=== PATIENT | female | born 1995 | race Caucasian/White ===

== ENCOUNTER 2018-03-13 03:50 | Emergency (ER) | payer SELFPAY ==
[2018-03-13 04:13] VITALS: TEMP 98.3
--- NOTE | 2018-03-13 04:20 | ED.PDOC ---
History of Present Illness - General Chief Complaint: General Stated Complaint: headache, back , dizziy Time Seen by Provider: 03/13/18 04:13 Source: patient Exam Limitations: no limitations Additional Information: SHE SUFFERS FROM ANXIETY AND TODAY SHE HAS MULTSYSTEMIC SYMPTOMS. SHE VOICES AT TIMES FEELING DIZZY, WITH VISUAL DISTURBANCES AND HEAD PRESSURES AND BACK DISCOMFORT ASSOCIATED WITH RAPID HEART RATE AND SOB. SHE WOKE UP EARLIER AND WAS TRYING TO TEST AND FELT IF THE CELL WAS BECOMING DISTORTED. AT THE TIME OF THE EXAM THE SYMPTOMS HAVE RESOLVED. SHE TELLS ME THAT SHE IS CONCERNED THAT SHE MIGHT BE . HER LAST PERIOD WAS JAN 14. - History of Present Illness Timing/Duration: 1/2 hour Improving Factors: nothing Worsening Factors: nothing Associated Symptoms: denies symptoms Allergies/Adverse Reactions: Allergies NO KNOWN ALLERGY Allergy (Verified 03/13/18 04:03) Review of Systems - Review of Systems Constitutional: States: no symptoms reported EENTM: States: no symptoms reported Respiratory: States: no symptoms reported Cardiology: States: no symptoms reported Gastrointestinal/Abdominal: States: no symptoms reported Genitourinary: States: no symptoms reported Musculoskeletal: States: no symptoms reported Skin: States: no symptoms reported Neurological: States: anxiety, tingling Endocrine: States: no symptoms reported Hematologic/Lymphatic: States: no symptoms reported All other Systems: Reviewed and Negative, No Change from Baseline Past Medical History (General) - Patient Medical History Hx Seizures: No Hx Stroke: No Hx Dementia: No Hx Asthma: No Hx of COPD: No Hx Cardiac Disorders: No Hx Congestive Heart Failure: No Hx Pacemaker: No Hx Hypertension: No Hx Thyroid Disease: No Hx Diabetes: No Hx Gastroesophageal Reflux: No Hx Renal Disease: No Hx Cancer: No Hx of HIV: No Hx Hepatitis C: No Hx MRSA: No Surgical History: no surgical history - Vaccination History Hx Tetanus, Diphtheria Vaccination: No Hx Influenza Vaccination: No - Social History Hx Tobacco Use: Yes Hx Alcohol Use: No Hx Substance Use: No - Female History Hx Last Menstrual Period: 12/10/15 Patient : No Family Medical History - Family History Mother Family History: Unknown Physical Exam - Physical Exam General Appearance: Alert, Anxious Eye Exam: bilateral normal Ears, Nose, Throat: hearing grossly normal Neck: non-tender Respiratory: chest non-tender, lungs clear, normal breath sounds, no respiratory distress, no accessory muscle use Cardiovascular/Chest: normal peripheral pulses, regular rate, rhythm, no edema, no gallop, no JVD, no murmur Peripheral Pulses: radial,right: 2+, radial,left: 2+ Gastrointestinal/Abdominal: normal bowel sounds, non tender, soft Rectal Exam: deferred Back Exam: normal inspection Extremity: normal range of motion Neurologic: alert, normal mood/affect, oriented x 3 Skin Exam: normal color Lymphatic: no adenopathy Progress - Progress Progress: 03/13/18 04:44 THE TEST IS NEGATIVE. Departure - Departure Clinical Impression: Anxiety Time of Disposition: 04:45 Disposition: Discharge to Home or Self Care Condition: Fair Departure Forms: ED Discharge - Pt. Copy, Patient Portal Self Enrollment Diet: resume usual diet Referrals: Brigida Zimmerman MD [Primary Care Provider] - 1-2 Weeks
[2018-03-13 04:52] VITALS: BP 138/85; O2SAT 95
== END 2018-03-13 04:51 | disposition home or self-care (01) ==
LOC: ER 03:50
DX: F41.9 Anxiety disorder, unspecified (principal); N92.6 Irregular menstruation, unspecified

== ENCOUNTER 2018-04-19 12:01 | Emergency (ER) | payer SELFPAY ==
--- NOTE | 2018-04-19 12:12 | ED.PDOC ---
History of Present Illness - General Chief Complaint: Dental/Mouth Stated Complaint: tooth pain Time Seen by Provider: 04/19/18 12:11 Source: patient Exam Limitations: no limitations - History of Present Illness Initial Comments: Sirai Fullbright 22 Timing/Duration: gradual, other - 3 days ago Severity: moderate EENT Location: dental Prearrival Treatment: other - chloraseptic Presenting Symptoms: dental pain Improving Factors: nothing Worsening Factors: eating Associated Symptoms: denies symptoms Allergies/Adverse Reactions: Allergies NO KNOWN ALLERGY Allergy (Verified 03/13/18 04:03) Home Medications: Ambulatory Orders Clindamycin HCl [Cleocin] 150 mg PO TID 7 Days #21 cap 04/19/18 Gabapentin [Neurontin] 200 mg PO BEDTIME #10 cap 04/19/18 Review of Systems - Review of Systems Constitutional: States: no symptoms reported EENTM: States: see HPI Respiratory: States: no symptoms reported Cardiology: States: no symptoms reported All other Systems: Reviewed and Negative, No Change from Baseline Past Medical History (General) - Patient Medical History Hx Seizures: No Hx Stroke: No Hx Dementia: No Hx Asthma: No Hx of COPD: No Hx Cardiac Disorders: No Hx Congestive Heart Failure: No Hx Pacemaker: No Hx Hypertension: No Hx Thyroid Disease: No Hx Diabetes: No Hx Gastroesophageal Reflux: No Hx Renal Disease: No Hx Cancer: No Hx of HIV: No Hx Hepatitis C: No Hx MRSA: No Surgical History: other - left wrist - Vaccination History Hx Tetanus, Diphtheria Vaccination: No Hx Influenza Vaccination: No - Social History Hx Tobacco Use: Yes Hx Alcohol Use: No Hx Substance Use: No Hx Physical Abuse: No Hx Emotional Abuse: No - Female History Patient is a Female of Child Bearing Age (10 -59 yrs old): Yes Hx Last Menstrual Period: 04/01/18 Patient : No Family Medical History - Family History Mother Family History: No Known Physical Exam - Physical Exam General Appearance: Alert, Comfortable, No apparent distress Eye Exam: bilateral normal Ear Exam: bilateral ear: auricle normal, canal normal, TM normal Nasal Exam: normal inspection Throat Exam: normal mouth inspection, pharynx normal, dental tenderness - right lower jaw with gum swelling no dental cavities noted Neck: supple, normal inspection, trachea midline Cardiovascular/Respiratory: regular rate, rhythm, no M/R/G, normal breath sounds Abdominal Exam: non-tender Neurologic: alert, oriented x 3 Skin Exam: normal color, warm/dry Departure - Departure Clinical Impression: Pain, dental Time of Disposition: 12:16 Disposition: Discharge to Home or Self Care Condition: Good Departure Forms: ED Discharge - Pt. Copy, Patient Portal Self Enrollment Instructions: DI for Dental Pain Diet: other - SOFT DIET ONLY Prescriptions: Clindamycin HCl [Cleocin] 150 mg PO TID 7 Days #21 cap Gabapentin [Neurontin] 200 mg PO BEDTIME #10 cap Home Medications: Ambulatory Orders Clindamycin HCl [Cleocin] 150 mg PO TID 7 Days #21 cap 04/19/18 Gabapentin [Neurontin] 200 mg PO BEDTIME #10 cap 04/19/18 Additional Instructions: KEEP APPOINTMENT WITH DENTIST 22 Apr 2018;May take Aleve(over the counter) 1-2 tablets am/pm for pain
[2018-04-19] MEDS ORDERED: GABAPENTIN 100 MG CAP PO ONE (12:16)
[2018-04-19] MEDS ORDERED: HYDROcodone 7.5MG/APAP 325MG 1 EA TAB PO ONE (12:16)
[2018-04-19] MEDS ORDERED: CLINDAMYCIN HCL CAP 150 MG CAP PO ONE (12:16)
[2018-04-19 12:17] VITALS: TEMP 98
[2018-04-19 13:13] VITALS: BP 112/60; O2SAT 97
== END 2018-04-19 12:52 | disposition home or self-care (01) ==
LOC: ER 12:01
DX: K08.89 Other specified disorders of teeth and supporting structures (principal); Z87.891 Personal history of nicotine dependence

== ENCOUNTER 2018-04-20 02:31 | Emergency (ER) | payer SELFPAY ==
--- NOTE | 2018-04-20 02:52 | ED.PDOC ---
History of Present Illness - General Chief Complaint: Dental/Mouth Stated Complaint: dental pain Time Seen by Provider: 04/20/18 02:34 Exam Limitations: no limitations - History of Present Illness Initial Comments: Lanette Fullbright 22 y/o female seen initially for dental pain this am came back since she continue to hurt on her lower jaw;She was given Clindamycin po and norco 10 mg then prescribed gabapentin and clindamycin.Stated has emergency appointment with dentist at 3:30 p today 20 Apr 2018 in [place]. Timing/Duration: this morning Severity: moderate EENT Location: dental Prearrival Treatment: prescription meds Presenting Symptoms: dental pain Improving Factors: nothing Worsening Factors: eating Associated Symptoms: denies symptoms, other - see hpi Allergies/Adverse Reactions: Allergies NO KNOWN ALLERGY Allergy (Verified 03/13/18 04:03) Home Medications: Ambulatory Orders Clindamycin HCl [Cleocin] 150 mg PO TID 7 Days #21 cap 04/19/18 Gabapentin [Neurontin] 200 mg PO BEDTIME #10 cap 04/19/18 Review of Systems - Review of Systems Constitutional: States: no symptoms reported EENTM: States: see HPI Respiratory: States: no symptoms reported Cardiology: States: no symptoms reported Neurological: States: no symptoms reported All other Systems: Reviewed and Negative, No Change from Baseline Past Medical History (General) - Patient Medical History Hx Seizures: No Hx Stroke: No Hx Dementia: No Hx Asthma: No Hx of COPD: No Hx Cardiac Disorders: No Hx Congestive Heart Failure: No Hx Pacemaker: No Hx Hypertension: No Hx Thyroid Disease: No Hx Diabetes: No Hx Gastroesophageal Reflux: No Hx Renal Disease: No Hx Cancer: No Hx of HIV: No Hx Hepatitis C: No Hx MRSA: No Surgical History: other - oral surgery;ganglion cyst left wrist - Vaccination History Hx Tetanus, Diphtheria Vaccination: No Hx Influenza Vaccination: No - Social History Hx Tobacco Use: Yes Hx Alcohol Use: No Hx Substance Use: No Hx Physical Abuse: No Hx Emotional Abuse: No - Female History Hx Last Menstrual Period: 04/01/18 Patient : No Family Medical History - Family History Mother Family History: No Known Physical Exam - Physical Exam General Appearance: Alert, Comfortable, No apparent distress Eye Exam: bilateral normal Ear Exam: bilateral ear: auricle normal, canal normal, TM normal Nasal Exam: normal inspection Throat Exam: normal mouth inspection, pharynx normal, dental tenderness, other - impacted molar right 3rd with slight gum erosion;no dental cavities noted Neck: non-tender, supple Cardiovascular/Respiratory: regular rate, rhythm, no M/R/G, normal peripheral pulses Abdominal Exam: non-tender Neurologic: alert, oriented x 3 Skin Exam: normal color, warm/dry Progress - Progress Progress: 04/20/18 04:18 Vital Signs - 8 hr 04/20/18 04/20/18 02:58 03:55 Temperature 97.4 F L 97.8 F Pulse Rate [ 93 H 84 left] Respiratory 18 18 Rate Blood Pressure 118/80 96/56 [left] O2 Sat by Pulse 95 100 Oximetry 04/20/18 04:19 Inferior alveolar nerve block done right side after applying lidocaine gel intraorally with 2 cc Lidocaine 1% with epi tolerated procedure well and 2 minutes later feels numb right lower jaw stating no longer hurts. - EKG/XRAY/CT XRAY: mandible no acute abnormalities noted Departure - Departure Clinical Impression: Pain, dental, Impacted third molar tooth Time of Disposition: 04:23 Disposition: Discharge to Home or Self Care Condition: Fair Departure Forms: ED Discharge - Pt. Copy, Patient Portal Self Enrollment Instructions: DI for Mouth Pain, DI for Dental Pain Diet: other - continue with soft diet Home Medications: Ambulatory Orders Clindamycin HCl [Cleocin] 150 mg PO TID 7 Days #21 cap 04/19/18 Gabapentin [Neurontin] 200 mg PO BEDTIME #10 cap 04/19/18 Additional Instructions: Continue with all home medications;KEEP EMERGENCY APPOINTMENT WITH DENTIST TODAY 20 Apr 2018 at 3:30 pm in [place]
[2018-04-20] MEDS ORDERED: KETOROLAC TROMETHAMINE INJ 60 MG/2 ML VIAL IM ONE (03:06)
[2018-04-20] MEDS ORDERED: LIDOCAINE 1% W/ EPINEPHRINE 20 ML VIAL INJ ONE (03:43)
[2018-04-20 04:01] VITALS: BP 96/56; O2SAT 100
--- NOTE | 2018-04-20 04:06 | RAD ---
Mandible series 3 view on 04/20/2018 CLINICAL INDICATION: Right mandible pain COMPARISON: None FINDINGS: There are no fractures. Paranasal sinuses appear grossly clear. No bony abnormality is noted. IMPRESSION: No acute abnormality. Electronically signed by: Gigi Aaron 04/20/2018 4:04 AM CDT
[2018-04-20] MEDS ORDERED: HYDROcodone 7.5MG/APAP 325MG 1 EA TAB PO ONE (04:12)
[2018-04-20] MEDS ORDERED: HYDROCOD/APAP 5/325 (ER DISP) #3 TAB PO ONE (04:12)
[2018-04-20 04:38] VITALS: TEMP 98.4
== END 2018-04-20 04:37 | disposition home or self-care (01) ==
LOC: ER 02:31
DX: K01.1 Impacted teeth (principal); Z87.891 Personal history of nicotine dependence
CPT/HCPCS: 70110; J1885

== ENCOUNTER 2018-07-21 00:36 | Emergency (ER) | payer SELFPAY ==
--- NOTE | 2018-07-21 00:45 | ED.PDOC ---
History of Present Illness - General Chief Complaint: Chest Pain/LA Stated Complaint: chest pain Time Seen by Provider: 07/21/18 00:45 Source: patient Exam Limitations: no limitations - History of Present Illness Initial Comments: Lanette Barksdaleight 23 y/o female brought by friend to [facility] ER with sharp shooting chest pains lasting for about few seconds intermittently since this morning stating getting more frequent so decided to come here.No n/v,no diaphoresis,no sob,denies pain radiation.Stated mostly on the left upper part of chest. Timing/Duration: 7-24 hours Severity/Quality: sharp Location: other - left sidechest Chest Pain Radiation: no radiation Activities at Onset: none Prior Chest Pain/Cardiac Workup: other - had same symptoms3 1/2 months ago but no Md follow up done by patient as she was instructed Improving Factors: nothing Worsening Factors: nothing Nitro Today/Relief: no nitro taken today Aspirin Treatment Today: no aspirin today Associated Symptoms: denies symptoms Allergies/Adverse Reactions: Allergies NO KNOWN ALLERGY Allergy (Verified 03/13/18 04:03) Home Medications: Ambulatory Orders NK [NK] 07/21/18 Review of Systems - Review of Systems Constitutional: States: no symptoms reported EENTM: States: no symptoms reported Respiratory: States: no symptoms reported Cardiology: States: see HPI Gastrointestinal/Abdominal: States: no symptoms reported Genitourinary: States: no symptoms reported Musculoskeletal: States: no symptoms reported Skin: States: no symptoms reported Past Medical History (General) - Patient Medical History Hx Seizures: No Hx Stroke: No Hx Dementia: No Hx Asthma: No Hx of COPD: No Hx Cardiac Disorders: No Hx Congestive Heart Failure: No Hx Pacemaker: No Hx Hypertension: No Hx Thyroid Disease: No Hx Diabetes: No Hx Gastroesophageal Reflux: No Hx Renal Disease: No Hx Cancer: No Hx of HIV: No Hx Hepatitis C: No Hx MRSA: No Surgical History: other - oral surgery - Vaccination History Hx Tetanus, Diphtheria Vaccination: No Hx Influenza Vaccination: No - Social History Hx Tobacco Use: Yes Hx Alcohol Use: No Hx Substance Use: No Hx Physical Abuse: No Hx Emotional Abuse: No - Female History Patient is a Female of Child Bearing Age (10 -59 yrs old): Yes Hx Last Menstrual Period: 07/04/18 Patient : No Family Medical History - Family History Mother Family History: No Known Physical Exam - Physical Exam General Appearance: Alert, Comfortable, No apparent distress Eyes, Ears, Nose, Throat Exam: normal ENT inspection Neck: non-tender, full range of motion, supple Respiratory: chest non-tender, lungs clear, normal breath sounds Cardiovascular/Chest: normal peripheral pulses, regular rate, rhythm, no murmur Peripheral Pulses: radial,right: 2+, radial,left: 2+ Gastrointestinal/Abdominal: normal bowel sounds, non tender, soft Extremity: normal range of motion, non-tender, no pedal edema, no calf tenderness Neurologic: no motor/sensory deficits, alert, oriented x 3 Skin Exam: normal color, warm/dry Progress - Progress Progress: 07/21/18 02:08 Vital Signs - 8 hr 07/21/18 07/21/18 00:46 00:50 Pulse Rate [ 102 H 101 H Apical] Respiratory 18 Rate Blood Pressure 142/83 [Left Arm] O2 Sat by Pulse 98 Oximetry - Results/Orders Results/Orders: 07/21/18 00:54 EKG Assessment ONCE 07/21/18 01:00 EKG STAT Laboratory Results - last 24 hr 07/21/18 07/21/18 07/21/18 00:52 00:52 01:03 WBC 8.8 RBC 5.33 Hgb 15.7 Hct 46.4 MCV 87.1 MCH 29.5 MCHC 33.8 RDW 13.9 Plt Count 313 MPV 7.8 Absolute Neuts (auto) 5.20 Absolute Lymphs (auto) 2.30 Absolute Monos (auto) 1.00 H Absolute Eos (auto) 0.20 Absolute Basos (auto) 0.10 Neutrophils % 59.5 Lymphocytes % 26.3 Monocytes % 11.6 H Eosinophils % 1.9 Basophils % 0.7 PT 9.8 INR 0.98 PTT (SP) 26.7 D-Dimer, Quantitative Sodium 138 Potassium 3.7 Chloride 103 Carbon Dioxide 26 Anion Gap 12.7 BUN 10 Creatinine 0.77 BUN/Creatinine Ratio 13.0 Random Glucose 80 Serum Osmolality 273.7 L Calcium 9.7 Magnesium 1.9 Total Bilirubin 0.6 Direct Bilirubin < 0.1 Indirect Bilirubin 0.5 AST 27 ALT 34 Alkaline Phosphatase 60 Creatine Kinase 64 CK-MB (CK-2) 0.7 CK-MB (CK-2) % Not Reportable Troponin I < 0.02 Serum Total Protein 7.8 Albumin 4.4 TSH 4.56 Urine Color Urine Appearance Urine pH Ur Specific [place] Urine Protein Urine Glucose (UA) Urine Ketones Urine Blood Urine Nitrite Urine Bilirubin Urine Urobilinogen Ur Leukocyte Esterase Urine RBC Urine WBC Ur Epithelial Cells Urine Bacteria Urine Opiates Screen Negative Urine Barbiturates Negative Ur Phencyclidine Scrn Negative U Amphetamin/Meth Scrn Negative U Benzodiazepines Scrn Negative U Cocaine Metab Screen Negative U Cannabinoids Screen Negative 07/21/18 07/21/18 07/21/18 01:10 01:57 02:41 WBC RBC Hgb Hct MCV MCH MCHC RDW Plt Count MPV Absolute Neuts (auto) Absolute Lymphs (auto) Absolute Monos (auto) Absolute Eos (auto) Absolute Basos (auto) Neutrophils % Lymphocytes % Monocytes % Eosinophils % Basophils % PT INR PTT (SP) D-Dimer, Quantitative 0.35 Sodium Potassium Chloride Carbon Dioxide Anion Gap BUN Creatinine BUN/Creatinine Ratio Random Glucose Serum Osmolality Calcium Magnesium Total Bilirubin Direct Bilirubin Indirect Bilirubin AST ALT Alkaline Phosphatase Creatine Kinase CK-MB (CK-2) CK-MB (CK-2) % Troponin I < 0.02 Serum Total Protein Albumin TSH Urine Color Yellow Urine Appearance Clear Urine pH 7.0 Ur Specific [place] 1.025 Urine Protein Negative Urine Glucose (UA) Negative Urine Ketones Negative Urine Blood Negative Urine Nitrite Negative Urine Bilirubin Negative Urine Urobilinogen 0.2 Ur Leukocyte Esterase Negative Urine RBC 0-1 Urine WBC 0 Ur Epithelial Cells 1-3 Urine Bacteria 0 Urine Opiates Screen Urine Barbiturates Ur Phencyclidine Scrn U Amphetamin/Meth Scrn U Benzodiazepines Scrn U Cocaine Metab Screen U Cannabinoids Screen - EKG/XRAY/CT EKG: Sinus, Tachy, no ST T wave changes, Unchanged from - 17 Apr 2018 Comments: HR-108 XRAY: chest - no acute abnormalities Departure - Departure Clinical Impression: Chest pain Qualifiers: Chest pain type: unspecified Qualified Code(s): R07.9 - Chest pain, unspecified Time of Disposition: 03:15 Disposition: Discharge to Home or Self Care Condition: Good Departure Forms: ED Discharge - Pt. Copy, Patient Portal Self Enrollment Instructions: DI for Chest Pain Home Medications: Ambulatory Orders NK [NK] 07/21/18 Additional Instructions: Need to sign up with primary Md [phone] for referral to decorating consultant for further evaluation;Return to ER as needed;May take ALEVE(over the counter) 1 -2 tablets am/pm as needed for pain
[2018-07-21] MEDS ORDERED: LACTATED RINGERS 1,000 ML IVS ONE (01:03)
--- NOTE | 2018-07-21 01:29 | RAD ---
EXAM DESCRIPTION: Single view of the chest CLINICAL HISTORY: chest pain COMPARISON: 04/17/2018 FINDINGS: Single frontal view of the chest. The cardiomediastinal silhouette has normal size and contour. No consolidation, pneumothorax, or pleural effusion. No displaced rib fractures identified. Leads overlie the chest. Upper abdominal soft tissues are unremarkable. IMPRESSION: 1. No acute pulmonary process identified. Electronically signed by: Adan Storm 07/21/2018 1:28 AM CDT
[2018-07-21 03:33] VITALS: BP 118/74; O2SAT 99
== END 2018-07-21 03:33 | disposition home or self-care (01) ==
LOC: ER 00:36
DX: R07.9 Chest pain, unspecified (principal); R00.0 Tachycardia, unspecified; Z87.891 Personal history of nicotine dependence
CPT/HCPCS: 36415; 71045; 80048; 80076; 80307; 81001; 82550; 82553; 84443; 84484; 85025; 85379; 85610; 85730; 93005; J7120